=== PATIENT | female | born 1945 | race Caucasian/White ===

== ENCOUNTER 2017-02-28 11:54 | Inpatient (IN) | payer OTHER, BC ==
[2017-02-28] VITALS (17 sets, daily range): BP systolic 118–165; BP diastolic 51–103
[~2017-02-28] VITALS: Ht 157.5 cm; Wt 123.8 kg
--- NOTE | ~2017-02-28 | O ---
[facility] [place] [address] OPERATIVE REPORT Name: JOYCELYN HART Room #: 244-P ADM IN M.R.#: [id number] Admission: 02/28/17 Attend Phys: Asim Urbano MD Discharge: Date of : 41 Report #: [id number] THIS REPORT FOR: //name// CC: Asim Tomlinson MD DATE OF SERVICE: 03/06/2017 SURGEON: Kd Ghosh M.D. PREOPERATIVE DIAGNOSIS: Respiratory failure. POSTOPERATIVE DIAGNOSIS: Respiratory failure. OPERATIVE PROCEDURES: 1. Tracheostomy placement. 2. Division of thyroid isthmus. 3. Flexible fiberoptic bronchoscopy through tracheostomy site. ANESTHESIA: General. ESTIMATED BLOOD LOSS: 10 mL. INDICATIONS FOR SURGERY: The patient is a 71-year-old female who has respiratory failure, has been on ventilator for 14 days. Tracheostomy has been discussed with the family and the physicians involved and recommended for her ongoing care. DESCRIPTION OF PROCEDURE: The patient was placed on the operating table in supine position. After her PEG tube was placed, we proceeded to prep and drape her neck in the usual fashion for a tracheostomy. I injected the soft tissue of the neck with lidocaine with epinephrine. I outlined and then made a 3 cm incision through skin and subcutaneous tissue. We dissected down to the strap muscle. We dissected between the median raphe of the strap muscles and retracted these laterally exposing the thyroid. I divided the thyroid isthmus with cautery dissection. This was done to expose the trachea. I palpated the cricoid and into our tracheostomy site for about the fourth tracheal ring. I excised the anterior aspect of the fourth tracheal ring with a 15-blade knife. We slowly withdrew the endotracheal tube and inserted a #7 extra long Shiley tracheostomy tube with cuff and disposable inner cannula. This was successfully inserted. It was sutured to the skin after closure of some of the incision with 3-0 chromic. These skin and securing sutures were 3-0 nylon. I then applied tracheostomy ties. We then proceeded to examine the placement with a fiberoptic bronchoscope. [facility] [address] [place] [address] OPERATIVE REPORT Name: JOYCELYN HART Room #: 244-P [facility] IN M.R.#: [id number] Admission: 02/28/17 Attend Phys: Asim Urbano MD Discharge: Date of : 43 Report #: [id number] There was distal tracheal collapse suggesting tracheomalacia making it difficult to even see the kesha due to blood and tracheal collapse. The tracheostomy tube was clearly in the trachea. We then obtained a chest x-ray, which demonstrated that the tracheostomy tube was above the kesha. On this basis, the patient was transferred back to the intensive care unit in stable condition. Routine tracheostomy care will be provided. By: [id number] Kd Ghosh MD /danisha
--- NOTE | ~2017-02-28 | HC ---
[facility] [place] [address] CONSULTATION Name: JOYCELYN HART Room #: 238-P [facility] IN M.R.#: [id number] Admission: 02/28/17 Attend Phys: Asim Urbano MD Discharge: 03/23/17 Date of : 41 Report #: [id number] THIS REPORT FOR: //name// CC: Asim Alcala DATE OF SERVICE: 03/14/2017 DATE OF CONSULTATION: 03/14/2017 HISTORY OF PRESENT ILLNESS: I have been asked to evaluate this 71-year-old lady, who is currently on a respirator on with progressive dilatation of her small bowel over the last 7-10 days. The patient presented to [facility] with shortness of breath, was found to have bilateral pulmonary emboli, unprovoked. She has a long history of systemic lupus erythematosus. She was intubated and ultimately transferred to [facility] for tracheostomy and subsequently also had a PEG tube placed approximately 7 days ago. The PEG tube has been functional and satisfactory. The patient has been unable to be weaned at this point in time from the respirator. She was found to have progressive dilatation of the small bowel in recent days. Family denies having hearing patient pass flatus or any stools for the last 2-3 days. PAST MEDICAL HISTORY: Consistent with AFib, anemia, respiratory failure, systemic lupus erythematosus many years, chronic kidney disease, left donor nephrectomy many years ago, recent onset of unprovoked pulmonary emboli, DVT. The patient has ____ filter at this point in time, morbid obesity. ALLERGIES: EPROSARTAN, LISINOPRIL AND BENADRYL. MEDICATIONS: Currently multiple. See the medical record. PAST SURGICAL HISTORY: Only a previous . PHYSICAL EXAMINATION: GENERAL: Family at the bedside, and 2 sons. She is afebrile. She is stable. Currently on a respirator, grimacing to painful stimuli and to tracheal irritation. LUNGS: Decreased breath sounds at the bases. CARDIOVASCULAR: Regular rate and rhythm. ABDOMEN: Obese, soft, nonrigid, no guarding. RECTAL: Not performed. NEUROLOGIC: Stable. LABORATORY: Review of the patient's KUB demonstrates dilated loops of bowel. I would recommend a CT scan with oral contrast per the PEG tube tonight to further evaluate this as possible ileus, narcotically induced versus a small-bowel [facility] [address] [place] [address] CONSULTATION Name: JOYCELYN HART Room #: 238-P DIS IN M.R.#: [id number] Admission: 02/28/17 Attend Phys: Asim Urbano MD Discharge: 03/23/17 Date of : 43 Report #: [id number] obstruction secondary to adhesions. The orders have been placed. Thank you for allowing us to participate in her care and we will follow her with you. I would recommend new labs, KUB ____ as well as lactic acid in the a.m. <ELECTRONICALLY SIGNED> By: Dennis Barajas MD, FACS 03/26/17 1550 1215 1412 Dennis Barajas MD, FACS /nt
--- NOTE | ~2017-02-28 | S ---
[facility] [place] [address] SURGICAL PATH RPT PROCEDURE Name: JOYCELYN PEÑA Room #: 238-P DIS IN M.R.#: [id number] Admission: 02/28/17 Date of : 41 Discharge: 03/23/17 Report #: [id number] Path Case #: [id number] PATHOLOGY REPORT COLLECTION DATE: 03/21/2017 RECEIVED DATE: 03/24/2017 SUBMITTING PHYS: Dr. Dennis Barajas OTHER PHYS: Dr. Lucy Adam SPECIMEN(S) RECEIVED: A.Partial Gastrectomy * * * * * * * * * * * * FINAL DIAGNOSIS: Portion of stomach, "partial gastrectomy": - Portion of stomach with focal transmural defect with associated acute and chronic inflammation and granulation tissue. - Acute and chronic serositis. (MARÍA ELENA/mikaela; 03/26/2017) PATHOLOGIST: Rachel Reeves M.D. REPORT ELECTRONICALLY SIGNED BY: aRchel Reeves M.D. DATE/TIME: 03/27/2017 10:42 * * * * * * * * * * * * GROSS PATHOLOGY: The specimen is received in formalin labeled "Joycelyn Peña partial gastrectomy". Received is a segment of pale delgado mucosal covered tissue with a stapled margin of resection measuring 4.3 x 1.8 x 1.4 cm in greatest dimensions. The mucosal surface displays a circular defect measuring 1.2 x 0.9 cm displaying exposed light brown mucosa. The viktor are removed and the specimen is opened to reveal light delgado, cerebriform-appearing mucosa with normal architectural folds. The specimen is submitted representatively in cassettes A1 through A3. (CAA; 03/25/2017) CLINICAL HISTORY: Displaced feeding tube INITIAL CPT CODE(S): A; 35430 Professional services performed by [facility] at [facility] [address] [place] [address] SURGICAL PATH RPT PROCEDURE Name: JOYCELYN PEÑA Room #: 238-P [facility] IN [facility].#: [id number] Admission: 02/28/17 Date of : 41 Discharge: 03/23/17 Report #: [id number] Path Case #: [id number] Technical services performed by [facility] at [address] [place] [address], [facility] [address] [address]. [place] [address] PHONE: [phone] DIRECTOR: Jairo Solorzano M.D. * * * END OF REPORT * * *
--- NOTE | ~2017-02-28 | S ---
[facility] [address] [place] [address] SURGICAL PATH RPT PROCEDURE Name: JOYCELYN HART Room #: 244-P ADM IN M.R.#: [id number] Admission: 02/28/17 Date of : 41 Discharge: Report #: [id number] Path Case #: [id number] PATHOLOGY REPORT COLLECTION DATE: 03/09/2017 RECEIVED DATE: 03/10/2017 SUBMITTING PHYS: Dr. Arminda Neil OTHER PHYS: Dr. Bereket Ghosh Jr. Dr. Carmela Urbano SPECIMEN(S) RECEIVED: A.Peripheral smear * * * * * * * * * * * * FINAL DIAGNOSIS: Peripheral blood smear: - Severe normocytic anemia, mild leukocytosis/neutrophilia with a mild left shift and mild thrombocytopenia. (see comment) COMMENT: Overall, the peripheral blood has severe normocytic anemia, mild leukocytosis/neutrophilia with a mild left shift and mild thrombocytopenia. The etiology of the findings is unclear based entirely on slide review. It is likely related to the patient's underlying medical condition and/or therapies. Potential causes of normocytic anemia include anemia of chronic disease, treated and/or compensated vitamin and mineral deficiencies, acute blood loss, and dilutional. Potential causes of leukocytosis include infections, drug reactions, and smoking. Potential causes of thrombocytopenia include immune and non-immune platelet destruction, drug and/or toxic exposures, dilutional and primary bone marrow disorders. Correlation with clinical history and additional laboratory data is recommended. (CLW:mgr; 03/10/2017) PATHOLOGIST: Yamini Hopson M.D. REPORT ELECTRONICALLY SIGNED BY: Yamini Hopson M.D. DATE/TIME: 03/10/2017 22:39 * * * * * * * * * * * * MICROSCOPIC DESCRIPTION: CBC Data (03/09/17): WBC 11,900 /uL, RBC 2.32, hemoglobin 6.9 g/dL, hematocrit 21.2%, MCV 91.3 fL, MCH 29.7 pg, MCHC 32.5 g/dL, [place] [address] SURGICAL PATH RPT PROCEDURE Name: JOYCELYN HART Room #: 244- ADM IN [facility].#: [id number] Admission: 02/28/17 Date of : 41 Discharge: Report #: [id number] Path Case #: [id number] 17.5%. Platelet count 119,000 /uL. Manual white blood cell differential: segs 98%, lymphs 2%. Peripheral Blood Smear: Cytomorphological examination of the Iniguez's stained peripheral blood smear confirms the provided data. Red blood cells show severe normocytic anemia with mild anisocytosis. No significant poikilocytosis is identified. No schistocytes or microspherocytes are seen. A suggestion of rouleaux is noted. White blood cells are mildly increased in number. They are predominantly segmented neutrophils and are without significant dyspoiesis. Reactive changes are noted. A rare metamyelocyte is noted on scanning. No blasts or Deepika rods are seen. Rare lymphocytes are predominantly small, round, and mature appearing with condensed chromatin and scant cytoplasm. Rare monocytes are mature. Platelets are mildly decreased in number and mainly normal in morphology with rare larger platelets noted. CLINICAL HISTORY: 71 year-old woman with anemia and thrombocytopenia. Morphologic review of the peripheral blood smear is requested by the patient's physician. INITIAL CPT CODE(S): A; NC Professional services performed by [facility] at [facility] [address], [place] [address] Technical services performed by [facility] at [address] [place] [address], [address] [address]. [facility] [address] [place] [address] PHONE: [phone] DIRECTOR: Jairo Solorzano M.D. * * * END OF REPORT * * *
--- NOTE | ~2017-02-28 | O ---
[facility] [place] [address] OPERATIVE REPORT Name: JOYCELYN HART Room #: 238-P [facility] IN M.R.#: [id number] Admission: 02/28/17 Attend Phys: Asim Urbano MD Discharge: 03/23/17 Date of : 41 Report #: [id number] THIS REPORT FOR: //name// CC: Asim Alcala DATE OF SERVICE: 03/21/2017 PREOPERATIVE DIAGNOSES: Gastric perforation with displaced PEG tube, pneumoperitoneum. POSTOPERATIVE DIAGNOSIS: Gastric perforation with displaced PEG tube, pneumoperitoneum. OPERATIVE PROCEDURE: Exploratory laparotomy, partial gastrectomy, closure of gastrotomy site, insertion of narayanan gastrojejunostomy tube. Irrigation of peritoneal cavity. SURGEON: Dennis Barajas MD SHEEP BONER: Gaudencio Griffiths MD SECOND ASSISTANTS: 1. Julieth Beckham MS4. 2. Joseph Canales MS3. INDICATIONS: A 71-year-old lady with multiple and severe medical issues on the respirator having had a previous PEG tube placed, now has demonstration by insertion of contrast material into the PEG that the PEG tube has displaced from the stomach wall. The patient has pneumoperitoneum, free air by KUB and CT scanning. This will require exploratory laparotomy for repair. OPERATIVE PROCEDURE: The patient was on the respirator and sedated. Discussion was held with the who is durable power of deputy county attorney and the immediate family regarding the need for exploratory laparotomy and repair of the gastrotomy site and removal of the old PEG tube with placement of a new narayanan gastrojejunostomy tube. They are in agreement to proceed and desire to proceed. OPERATIVE PROCEDURE: The patient was transported directly from the intensive care unit to the operating room. She had satisfactory induction of general anesthesia through the tracheostomy tube. Sterile paint with DuraPrep was performed from the inframammary crease to the symphysis pubis. After prep was completed, draping was completed with utilization of an Ioban drape to exclude the previous PEG tube from the operative field. Draping was completed. An appropriate timeout was then performed. An upper midline incision was performed. Dissection was carried down through the subcutaneous tissue to the [facility] [address] [place] [address] OPERATIVE REPORT Name: JOYCELYN HART Room #: 238-P [facility] IN [facility].#: [id number] Admission: 02/28/17 Attend Phys: Asim Urbano MD Discharge: 03/23/17 Date of : 43 Report #: [id number] fascia. A 12 cm midline incision of the fascia was performed. Examination of the left upper quadrant abdominal wall demonstrated the flange of the PEG tube against the abdominal wall and out of the stomach. This was transected and the entire PEG tube was removed from the field. The gastrotomy site was found along the greater curvature of the stomach. This was grasped with [place] clamps. A 75 mm green load of the IVIS stapling device was utilized to perform the partial gastrectomy with closure of the gastrotomy perforation site. The staple line was then oversewn in a Lembert style running suture of 2-0 PDS. Attention was then turned to more distal portion of the stomach where 2 pursestring sutures of 2-0 PDS were placed. A narayanan gastrojejunostomy tube was then brought through the abdominal wall through the same previous PEG tube site. A small gastrotomy was performed utilizing the cautery. After the gastrotomy was performed, the narayanan gastrojejunostomy tube was inserted. It was threaded through the pylorus and to the duodenal sweep. Once the balloon was satisfactory inside the stomach, the balloon was inflated with 20 mL of saline. The 2 pursestring sutures were then ligated in place. The stomach was then brought up against the anterior abdominal wall and 3 sutures to approximate the surface of the stomach to the abdominal wall was performed. After the sutures were removed, hemostasis was complete, irrigation with saline was performed of the upper abdomen, approximately 2 liters was used. Inflow of saline through the narayanan gastrojejunostomy tube through the gastrotomy port as well as the feeding port at the tip and the duodenum was performed. These worked satisfactorily. Hemostasis was complete. The fascia was then approximated with running looped #1 PDS suture. One suture was run from the superior aspect of the incision, one suture was run from the inferior aspect of the incision. These sutures were tied individually and then the tails tied together in the mid portion of the wound. Irrigation of subcutaneous tissues was performed. Skin margins were then stapled. The narayanan gastrojejunostomy tube was sutured in place with the flange to the skin. It functioned properly at the conclusion of the procedure with the inflow and outflow of saline. Skin margins were stapled. A Prevena dressing was placed. The estimated blood loss for the entire procedure was approximately 50 mL. All sponge and needle counts were correct. The patient returned directly to the Intensive Care Unit in stable and satisfactory condition. <ELECTRONICALLY SIGNED> By: Dennis Barajas MD, FACS 03/24/17 1305 1141 1248 Dennis Barajas MD, FACS /nt
[~2017-02-28 11:54] MED LIST: ACETAMINOPHN-T1 EACH PO; ADVAIR 100-501 EACH INH; ALLOPURINOL 10100 M1 PO; ALLOPURINOL 30300 M2 PO; CEFTRIAXONE2 GM IJ; CITRUCEL500 MG PO; ENTOCORT EC 3 MG3 M1 PO; FISH OIL 1,001000 M1 PO; FLONASE 0.05%50 MCG NASAL; HYDROCHLOROTHIA25 M1 PO; HYDROXYCHLOROQ200 M1 PO; LIDODERM 5%1 PATCH TOP; LIPITOR 20 MG T20 M1 PO; LISINOPRIL40 MG PO; MULTIGEN CAPLET1 CAP PO; NORCO 5-325 TA1 EACH PO; NORFLEX100 MG PO; PAROXETINE HCL20 MG PO; PREDNISONE 1 MG1 M1 PO; SIMVASTATIN20 MG PO; SULFASALAZINE500 M5 PO; TEVETEN PO; THERA-M CAPLET1 EACH PO; TYLENOL325 MG PO
[2017-02-28] MEDS ORDERED: LEVOTHYROXIN0.025 MG PO (13:53)
[2017-02-28] MEDS ORDERED: CARDIZEM CD120 MG PO (13:54)
[2017-02-28] MEDS ORDERED: OMEPRAZOLE40 MG PO (13:54)
[2017-02-28] MEDS ORDERED: LASIX 40 MG TAB40 M2 PO (13:55)
[2017-02-28] MEDS ORDERED: MULTIGEN FOLIC1 EACH PO (13:55)
[2017-02-28] MEDS ORDERED: POTASSIUM20 PO (13:56)
[2017-02-28] MEDS ORDERED: PRADAXA75 MG PO (13:56)
[2017-02-28] MEDS ORDERED: PREDNISONE50 MG PO (13:57)
[2017-02-28] MEDS ORDERED: ATORVASTATIN CA20 MG PO (13:58)
[2017-02-28] MEDS ORDERED: VITAMIN D32000 UNIT PO (13:58)
[2017-02-28] MEDS ORDERED: CITRUCEL500 MG PO (13:59)
[2017-02-28 15:34] LABS: HEMATOCRIT 24.4 % (37.0-47.0); HEMOGLOBIN 8.1 gm/dL (12.0-15.0); MCH 30.6 pg (26.0-34.0); MCHC 33.2 g/dL (28.0-37.0); RBC 2.65 mil/uL (4.20-5.00); RDW 16.7 % (10.5-14.5); WBC 9.7 thou/uL (4.0-11.0)
[2017-02-28 16:40] LABS: CALCIUM 8.4 mg/dL (8.5-10.1); CREATININE 3.2 mg/dL (0.6-1.0); POTASSIUM 3.4 mmol/L (3.5-5.1)
[2017-02-28 16:49] LABS: ALBUMIN 2.7 g/dL (3.4-5.0); MAGNESIUM 2.2 mg/dL (1.8-2.4); PHOSPHORUS 6.5 mg/dL (2.5-4.9); TOTAL BILIRUBIN 0.4 mg/dL (<0.1-1.0); TOTAL PROTEIN 5.5 g/dL (6.4-8.2); TROPONIN-I 0.11 ng/mL (<0.04-0.07)
[2017-02-28 17:24] LABS: ABG SAMPLE TYPE ARTERIAL; BE(vivo) -6.5 mmol/L (-2 to +3); HCO3 18.1 mmol/L (22.0-26.0); LACTATE 0.79 mmol/L (0.5-2.0); O2(CT) 12.6 mL/dL (15.0-23.0); O2Hb 98.3 % (92.0-98.0); PCO2 32.1 mmHg (35.0-45.0); PO2 269.9 mmHg (80.0-100.0); STICK SITE R.RADIAL; TIDAL VOLUME 650 ml; pH 7.368 (7.360-7.450); sO2 99.6 % (92.0-98.0)
[2017-02-28 21:42] LABS: PROT/CREAT RATIO 2.4; URINE CREATININE-RANDOM* 51.8 mg/dL; URINE PROTEIN-RANDOM* 125.3 mg/dL (<11.9)
[2017-03-01] VITALS (24 sets, daily range): BP systolic 107–164; BP diastolic 38–91
[2017-03-01 05:59] LABS: HEMATOCRIT 23.2 % (37.0-47.0); HEMOGLOBIN 7.7 gm/dL (12.0-15.0); MCH 30.6 pg (26.0-34.0); MCHC 33.4 g/dL (28.0-37.0); MCV 91.6 fL (80.0-100.0); RBC 2.53 mil/uL (4.20-5.00); RDW 16.8 % (10.5-14.5); WBC 9.3 thou/uL (4.0-11.0)
[2017-03-01 06:04] LABS: CALCIUM 8.3 mg/dL (8.5-10.1); CREATININE 2.9 mg/dL (0.6-1.0); MAGNESIUM 2.1 mg/dL (1.8-2.4); POTASSIUM 3.6 mmol/L (3.5-5.1)
[2017-03-01 15:36] LABS: ABG SAMPLE TYPE ARTERIAL; BE(vivo) -9.1 mmol/L (-2 to +3); LACTATE 0.99 mmol/L (0.5-2.0); O2(CT) 13.2 mL/dL (15.0-23.0); O2Hb 96.3 % (92.0-98.0); PCO2 44.6 mmHg (35.0-45.0); PO2 110.1 mmHg (80.0-100.0); pH 7.224 (7.360-7.450); sO2 97.1 % (92.0-98.0); tCO2 19.4 mmol/L (24.0-30.0)
[2017-03-01 15:37] LABS: Pressure Support 5 cm H20; STICK SITE L.RADIAL
[2017-03-01 15:39] LABS: ABG COMMENT CPAP TRIAL
[2017-03-01 16:33] LABS: % SATURATION 40 % (20-39); IRON 79 ug/dL (50-170); TIBC 198 ug/dL (250-450); UIBC 119 ug/dL
[2017-03-01 17:57] LABS: FOLIC ACID 23.9 ng/mL (8.6-58.9)
[2017-03-02] VITALS (20 sets, daily range): BP systolic 108–159; BP diastolic 50–74
[2017-03-02 05:25] LABS: HEMATOCRIT 22.4 % (37.0-47.0); HEMOGLOBIN 7.4 gm/dL (12.0-15.0); MCH 30.3 pg (26.0-34.0); MCV 91.8 fL (80.0-100.0); RBC 2.44 mil/uL (4.20-5.00); RDW 17.1 % (10.5-14.5); WBC 10.8 thou/uL (4.0-11.0)
[2017-03-02 05:33] LABS: ALBUMIN 2.6 g/dL (3.4-5.0); CALCIUM 8.6 mg/dL (8.5-10.1); CREATININE 2.9 mg/dL (0.6-1.0); PHOSPHORUS 7.5 mg/dL (2.5-4.9)
[2017-03-02 12:26] LABS: ABG SAMPLE TYPE ARTERIAL; BE(vivo) -8.5 mmol/L (-2 to +3); HCO3 17.2 mmol/L (22.0-26.0); LACTATE 1.01 mmol/L (0.5-2.0); O2(CT) 12.5 mL/dL (15.0-23.0); PO2 117.6 mmHg (80.0-100.0); STICK SITE L.RADIAL; TIDAL VOLUME 600 ml; pH 7.296 (7.360-7.450); sO2 97.9 % (92.0-98.0); tCO2 18.3 mmol/L (24.0-30.0)
[2017-03-03] VITALS (17 sets, daily range): BP systolic 136–173; BP diastolic 61–93
[2017-03-03 05:25] LABS: HEMATOCRIT 21.3 % (37.0-47.0); HEMOGLOBIN 7.1 gm/dL (12.0-15.0); MCH 30.8 pg (26.0-34.0); MCHC 33.5 g/dL (28.0-37.0); MCV 91.9 fL (80.0-100.0); RBC 2.31 mil/uL (4.20-5.00); WBC 9.8 thou/uL (4.0-11.0)
[2017-03-03 05:40] LABS: ABG SAMPLE TYPE ARTERIAL; STICK SITE R.RADIAL
[2017-03-03 05:41] LABS: BE(vivo) -6.5 mmol/L (-2 to +3); HCO3 18.8 mmol/L (22.0-26.0); LACTATE 1.04 mmol/L (0.5-2.0); PCO2 36.5 mmHg (35.0-45.0); PO2 114.3 mmHg (80.0-100.0); tCO2 19.9 mmol/L (24.0-30.0)
[2017-03-03 05:42] LABS: O2Hb 96.5 % (92.0-98.0); sO2 97.9 % (92.0-98.0)
[2017-03-03 05:43] LABS: ABG COMMENT A/C 16; FIO2 30 %; TIDAL VOLUME 600 ml
[2017-03-03 05:46] LABS: CALCIUM 8.7 mg/dL (8.5-10.1); CREATININE 2.9 mg/dL (0.6-1.0); MAGNESIUM 2.2 mg/dL (1.8-2.4); POTASSIUM 3.7 mmol/L (3.5-5.1)
[2017-03-03 12:59] LABS: ABG SAMPLE TYPE ARTERIAL; BE(vivo) -8.6 mmol/L (-2 to +3); HCO3 18.1 mmol/L (22.0-26.0); LACTATE 1.02 mmol/L (0.5-2.0); O2Hb 95.5 % (92.0-98.0); PCO2 42.4 mmHg (35.0-45.0); PO2 100.5 mmHg (80.0-100.0); sO2 96.6 % (92.0-98.0); tCO2 19.4 mmol/L (24.0-30.0)
[2017-03-03 13:02] LABS: Pressure Support 7 cm H20; STICK SITE R.RADIAL; VDS CPAP TRIAL X 1 HOUR cc; pH 7.248 (7.360-7.450)
[2017-03-04] VITALS (29 sets, daily range): BP systolic 126–164; BP diastolic 61–96
[2017-03-04 05:47] LABS: HEMOGLOBIN 6.7 gm/dL (12.0-15.0)
[2017-03-04 05:49] LABS: HEMATOCRIT 20.1 % (37.0-47.0); MCH 30.8 pg (26.0-34.0); MCHC 33.5 g/dL (28.0-37.0); MCV 91.8 fL (80.0-100.0); RBC 2.19 mil/uL (4.20-5.00); RDW 17.1 % (10.5-14.5); WBC 11.6 thou/uL (4.0-11.0)
[2017-03-04 06:11] LABS: ALBUMIN 2.7 g/dL (3.4-5.0); CALCIUM 8.4 mg/dL (8.5-10.1); PHOSPHORUS 7.3 mg/dL (2.5-4.9); POTASSIUM 3.3 mmol/L (3.5-5.1)
[2017-03-04 10:57] LABS: MCH 30.1 pg (26.0-34.0); MCHC 32.4 g/dL (28.0-37.0); MCV 92.8 fL (80.0-100.0); PLATELET COUNT 156 thou/uL (150-400); RBC 2.07 mil/uL (4.20-5.00); WBC 11.2 thou/uL (4.0-11.0)
[2017-03-04 10:58] LABS: MANUAL DIFF YES
[2017-03-04 11:00] LABS: HEMOGLOBIN 6.2 gm/dL (12.0-15.0)
[2017-03-04 11:01] LABS: HEMATOCRIT 19.2 % (37.0-47.0)
[2017-03-04 11:11] LABS: PROTIME 10.7 Seconds (9.3-11.4)
[2017-03-04 12:37] LABS: ABSOLUTE NEUTROPHILS 10.8 thou/uL (1.4-8.2); METAMYELOCYTES 1 %; TOTAL CELL COUNT 100
[2017-03-04 12:38] LABS: ANISOCYTOSIS SLIGHT; HYPOCHROMASIA SLIGHT; OVALOCYTES OCCASIONAL; POIKILOCYTOSIS SLIGHT
[2017-03-04 13:21] LABS: ABG SAMPLE TYPE ARTERIAL; BE(vivo) -3.1 mmol/L (-2 to +3); HCO3 21.8 mmol/L (22.0-26.0); LACTATE 1.15 mmol/L (0.5-2.0); O2(CT) 9.9 mL/dL (15.0-23.0); O2Hb 96.1 % (92.0-98.0); PO2 105.4 mmHg (80.0-100.0); STICK SITE R.RADIAL; pH 7.376 (7.360-7.450); sO2 97.7 % (92.0-98.0); tCO2 22.9 mmol/L (24.0-30.0)
[2017-03-04 13:22] LABS: ABG COMMENT A/C; TIDAL VOLUME 600 ml
[2017-03-05] VITALS (24 sets, daily range): BP systolic 125–159; BP diastolic 57–87
[2017-03-05 00:58] LABS: HEMATOCRIT 26.8 % (37.0-47.0)
[2017-03-05 01:01] LABS: HEMOGLOBIN 8.9 gm/dL (12.0-15.0)
[2017-03-05 04:53] LABS: ABG SAMPLE TYPE ARTERIAL; BE(vivo) -4.5 mmol/L (-2 to +3); HCO3 20.1 mmol/L (22.0-26.0); LACTATE 0.89 mmol/L (0.5-2.0); O2(CT) 12.8 mL/dL (15.0-23.0); O2Hb 96.3 % (92.0-98.0); STICK SITE R.RADIAL; TIDAL VOLUME 600 ml; pH 7.377 (7.360-7.450); tCO2 21.2 mmol/L (24.0-30.0)
[2017-03-05 04:54] LABS: ABG COMMENT A/C MODE
[2017-03-05 05:35] LABS: HEMATOCRIT 25.3 % (37.0-47.0); HEMOGLOBIN 8.4 gm/dL (12.0-15.0); MCH 29.5 pg (26.0-34.0); MCHC 33.2 g/dL (28.0-37.0); MCV 88.7 fL (80.0-100.0); RBC 2.85 mil/uL (4.20-5.00); RDW 17.1 % (10.5-14.5); WBC 14.6 thou/uL (4.0-11.0)
[2017-03-05 05:42] LABS: ALBUMIN 2.6 g/dL (3.4-5.0); CALCIUM 8.6 mg/dL (8.5-10.1); CREATININE 2.7 mg/dL (0.6-1.0); PHOSPHORUS 6.5 mg/dL (2.5-4.9); POTASSIUM 3.4 mmol/L (3.5-5.1)
[2017-03-05 13:27] LABS: ABG SAMPLE TYPE ARTERIAL; BE(vivo) -5.5 mmol/L (-2 to +3); HCO3 19.9 mmol/L (22.0-26.0); O2(CT) 12.8 mL/dL (15.0-23.0); O2Hb 91.5 % (92.0-98.0); PCO2 38.7 mmHg (35.0-45.0); PO2 71.4 mmHg (80.0-100.0); sO2 93.4 % (92.0-98.0); tCO2 21.1 mmol/L (24.0-30.0)
[2017-03-05 13:28] LABS: STICK SITE R.RADIAL
[2017-03-05 13:29] LABS: ABG COMMENT CPAP TRIAL X 1.5 HR; Pressure Support 6 cm H20; TIDAL VOLUME 580 ml
[2017-03-06] VITALS (22 sets, daily range): BP systolic 138–189; BP diastolic 62–96
[2017-03-06 05:20] LABS: ABG SAMPLE TYPE ARTERIAL; HCO3 22.1 mmol/L (22.0-26.0); LACTATE 1.21 mmol/L (0.5-2.0); O2(CT) 14.6 mL/dL (15.0-23.0); O2Hb 96.5 % (92.0-98.0); PCO2 35.1 mmHg (35.0-45.0); PO2 108.8 mmHg (80.0-100.0); pH 7.416 (7.360-7.450); sO2 98.1 % (92.0-98.0); tCO2 23.1 mmol/L (24.0-30.0)
[2017-03-06 05:21] LABS: ABG COMMENT AC16 600 +7 30%; STICK SITE RRA; TIDAL VOLUME 600 ml
[2017-03-06 05:42] LABS: HEMATOCRIT 23.9 % (37.0-47.0); MCH 29.7 pg (26.0-34.0); MCHC 33.4 g/dL (28.0-37.0); MCV 88.9 fL (80.0-100.0); RBC 2.69 mil/uL (4.20-5.00); RDW 17.2 % (10.5-14.5); WBC 12.6 thou/uL (4.0-11.0)
[2017-03-06 05:52] LABS: ALBUMIN 2.5 g/dL (3.4-5.0); CALCIUM 8.5 mg/dL (8.5-10.1); CREATININE 2.7 mg/dL (0.6-1.0); PHOSPHORUS 5.2 mg/dL (2.5-4.9); POTASSIUM 3.7 mmol/L (3.5-5.1)
[2017-03-07] VITALS (24 sets, daily range): BP systolic 131–168; BP diastolic 62–96
[2017-03-07 05:18] LABS: ABG SAMPLE TYPE ARTERIAL; BE(vivo) -2.3 mmol/L (-2 to +3); HCO3 22.2 mmol/L (22.0-26.0); LACTATE 1.36 mmol/L (0.5-2.0); O2(CT) 12.9 mL/dL (15.0-23.0); O2Hb 96.3 % (92.0-98.0); PCO2 36.6 mmHg (35.0-45.0); PO2 110.1 mmHg (80.0-100.0); sO2 98.1 % (92.0-98.0); tCO2 23.3 mmol/L (24.0-30.0)
[2017-03-07 05:19] LABS: STICK SITE R.RADIAL; TIDAL VOLUME 600 ml
[2017-03-07 05:48] LABS: HEMATOCRIT 26.5 % (37.0-47.0); HEMOGLOBIN 8.6 gm/dL (12.0-15.0); MCH 29.2 pg (26.0-34.0); MCHC 32.2 g/dL (28.0-37.0); MCV 90.6 fL (80.0-100.0); PLATELET COUNT 142 thou/uL (150-400); RBC 2.93 mil/uL (4.20-5.00); RDW 17.4 % (10.5-14.5); WBC 17.6 thou/uL (4.0-11.0)
[2017-03-07 05:51] LABS: MANUAL DIFF YES
[2017-03-07 06:01] LABS: ALBUMIN 2.8 g/dL (3.4-5.0); CALCIUM 8.7 mg/dL (8.5-10.1); CREATININE 2.6 mg/dL (0.6-1.0); POTASSIUM 3.6 mmol/L (3.5-5.1)
[2017-03-07 07:44] LABS: ABSOLUTE NEUTROPHILS 16.7 thou/uL (1.4-8.2); ANISOCYTOSIS 1+; TOTAL CELL COUNT 100
[2017-03-07 08:55] LABS: ABG SAMPLE TYPE ARTERIAL; BE(vivo) -6.1 mmol/L (-2 to +3); HCO3 19.1 mmol/L (22.0-26.0); LACTATE 1.53 mmol/L (0.5-2.0); O2(CT) 13.3 mL/dL (15.0-23.0); O2Hb 95.9 % (92.0-98.0); PCO2 36.4 mmHg (35.0-45.0); pH 7.337 (7.360-7.450); sO2 97.7 % (92.0-98.0); tCO2 20.2 mmol/L (24.0-30.0)
[2017-03-07 08:56] LABS: ABG COMMENT CPAP TRIAL X 30 MIN; Pressure Support 5 cm H20; STICK SITE R.RADIAL
[2017-03-08] VITALS (23 sets, daily range): BP systolic 103–163; BP diastolic 55–121
[2017-03-08 05:25] LABS: ABG SAMPLE TYPE ARTERIAL; FIO2 30 %; HCO3 22.9 mmol/L (22.0-26.0); LACTATE 1.38 mmol/L (0.5-2.0); O2Hb 94.2 % (92.0-98.0); PCO2 34.6 mmHg (35.0-45.0); PO2 81.1 mmHg (80.0-100.0); STICK SITE R.RADIAL; TIDAL VOLUME 600 ml; pH 7.439 (7.360-7.450); sO2 96.4 % (92.0-98.0)
[2017-03-08 05:36] LABS: HEMATOCRIT 23.5 % (37.0-47.0); HEMOGLOBIN 7.7 gm/dL (12.0-15.0); MCH 29.6 pg (26.0-34.0); MCHC 32.9 g/dL (28.0-37.0); MCV 90.2 fL (80.0-100.0); RBC 2.6 mil/uL (4.20-5.00); RDW 17.5 % (10.5-14.5); WBC 13.7 thou/uL (4.0-11.0)
[2017-03-08 05:42] LABS: PROTIME 10.7 Seconds (9.3-11.4)
[2017-03-08 05:48] LABS: ALBUMIN 2.7 g/dL (3.4-5.0); CALCIUM 8.9 mg/dL (8.5-10.1); CREATININE 2.5 mg/dL (0.6-1.0); PHOSPHORUS 5.2 mg/dL (2.5-4.9); POTASSIUM 3.7 mmol/L (3.5-5.1)
[2017-03-09] VITALS (21 sets, daily range): BP systolic 117–178; BP diastolic 46–78
[2017-03-09 04:42] LABS: HEMOGLOBIN 6.9 gm/dL (12.0-15.0); MCH 29.7 pg (26.0-34.0); PLATELET COUNT 119 thou/uL (150-400); RBC 2.32 mil/uL (4.20-5.00); WBC 11.9 thou/uL (4.0-11.0)
[2017-03-09 04:43] LABS: HEMATOCRIT 21.2 % (37.0-47.0); MCHC 32.5 g/dL (28.0-37.0); MCV 91.3 fL (80.0-100.0); RDW 17.5 % (10.5-14.5)
[2017-03-09 04:46] LABS: MANUAL DIFF YES
[2017-03-09 04:58] LABS: ALBUMIN 2.5 g/dL (3.4-5.0); CALCIUM 8.9 mg/dL (8.5-10.1); CREATININE 2.7 mg/dL (0.6-1.0); PHOSPHORUS 5.3 mg/dL (2.5-4.9); POTASSIUM 3.6 mmol/L (3.5-5.1); TOTAL BILIRUBIN 0.3 mg/dL (<0.1-1.0); TOTAL PROTEIN 5.4 g/dL (6.4-8.2)
[2017-03-09 05:44] LABS: ABSOLUTE NEUTROPHILS 11.7 thou/uL (1.4-8.2); TOTAL CELL COUNT 100
[2017-03-09 05:45] LABS: ANISOCYTOSIS 1+
[2017-03-09 10:35] LABS: URINE BILIRUBIN NEGATIVE (Negative); URINE BLOOD 3+ (Negative); URINE COLOR YELLOW; URINE GLUCOSE-RANDOM* NEGATIVE (Negative); URINE KETONES NEGATIVE (Negative); URINE LEUKOCYTES-REFLEX TRACE (Negative); URINE PROTEIN (DIPSTICK) 2+ (Negative); URINE SPECIFIC GRAVITY 1.015 (1.003-1.035); URINE UROBILINOGEN 0.2 E.U./dl (0.2-1.0)
[2017-03-09 10:57] LABS: APTT 23.4 Seconds (24.5-32.8); INR 1.1; PROTIME 10.9 Seconds (9.3-11.4)
[2017-03-09 11:05] LABS: SQUAMOUS 0-3 Few /LPF (0-3); URINE WBC-REFLEX 0-5 Rare /HPF (0-5)
[2017-03-09 11:06] LABS: CRYSTALS None Seen /LPF (None Seen)
[2017-03-09 11:08] LABS: FINE GRANULAR CASTS 0-3 Few /LPF (None Seen); WAXY CAST 0-3 Few /LPF (None Seen)
[2017-03-09 12:19] LABS: ABSOLUTE RETIC COUNT 0.068 10^6/uL; OBSERVED RETIC COUNT 3.2 % (0.6-2.6)
[2017-03-09 12:28] LABS: % SATURATION 41 % (20-39); IRON 64 ug/dL (50-170); TIBC 156 ug/dL (250-450); UIBC 92 ug/dL
[2017-03-10] VITALS (13 sets, daily range): BP systolic 50–144; BP diastolic 19–84
[2017-03-10 03:06] LABS: HEMATOCRIT 22.5 % (37.0-47.0); HEMOGLOBIN 7.6 gm/dL (12.0-15.0); MCH 29.7 pg (26.0-34.0); MCHC 33.7 g/dL (28.0-37.0); MCV 88.1 fL (80.0-100.0); PLATELET COUNT 122 thou/uL (150-400); RBC 2.56 mil/uL (4.20-5.00); RDW 18.3 % (10.5-14.5); WBC 10.7 thou/uL (4.0-11.0)
[2017-03-10 03:32] LABS: MANUAL DIFF YES
[2017-03-10 03:37] LABS: ALBUMIN 2.5 g/dL (3.4-5.0); CALCIUM 8.6 mg/dL (8.5-10.1); CREATININE 2.6 mg/dL (0.6-1.0); POTASSIUM 3.3 mmol/L (3.5-5.1)
[2017-03-10 08:51] LABS: ANISOCYTOSIS 1+; PLATELET ESTIMATE NORMAL; TOTAL CELL COUNT 100
[2017-03-10 16:07] LABS: HEPATITIS C VIRUS AB <0.1 (0.0-0.9)
[2017-03-11] VITALS (19 sets, daily range): BP systolic 124–166; BP diastolic 61–105
[2017-03-11 04:31] LABS: HEMATOCRIT 22.7 % (37.0-47.0); HEMOGLOBIN 7.6 gm/dL (12.0-15.0); MCH 29.9 pg (26.0-34.0); MCHC 33.6 g/dL (28.0-37.0); MCV 88.9 fL (80.0-100.0); PLATELET COUNT 132 thou/uL (150-400); RBC 2.55 mil/uL (4.20-5.00); RDW 18.8 % (10.5-14.5); WBC 9.5 thou/uL (4.0-11.0)
[2017-03-11 04:40] LABS: MANUAL DIFF YES
[2017-03-11 04:48] LABS: ALBUMIN 2.5 g/dL (3.4-5.0); CALCIUM 8.6 mg/dL (8.5-10.1); CREATININE 2.4 mg/dL (0.6-1.0); PHOSPHORUS 4.6 mg/dL (2.5-4.9); POTASSIUM 3.7 mmol/L (3.5-5.1)
[2017-03-11 08:07] LABS: ABSOLUTE NEUTROPHILS 8.9 thou/uL (1.4-8.2); METAMYELOCYTES 2 %; NUCLEATED RBCS 1 /100WBC; TOTAL CELL COUNT 100
[2017-03-11 08:08] LABS: ANISOCYTOSIS 1+
[2017-03-11 16:50] LABS: ABG SAMPLE TYPE ARTERIAL; BE(vivo) -2.6 mmol/L (-2 to +3); HCO3 22.3 mmol/L (22.0-26.0); LACTATE 1.18 mmol/L (0.5-2.0); O2(CT) 10.5 mL/dL (15.0-23.0); O2Hb 87.1 % (92.0-98.0); PO2 55.2 mmHg (80.0-100.0); STICK SITE R.RADIAL; pH 7.376 (7.360-7.450); sO2 88.2 % (92.0-98.0); tCO2 23.5 mmol/L (24.0-30.0)
[2017-03-11 16:51] LABS: Pressure Support 6 cm H20
[2017-03-12] VITALS (7 sets, daily range): BP systolic 108–159; BP diastolic 53–104
[2017-03-12 05:36] LABS: HEMATOCRIT 21.5 % (37.0-47.0); HEMOGLOBIN 7.3 gm/dL (12.0-15.0); MCHC 33.9 g/dL (28.0-37.0); MCV 88.6 fL (80.0-100.0); RBC 2.43 mil/uL (4.20-5.00); RDW 18.1 % (10.5-14.5); WBC 10.4 thou/uL (4.0-11.0)
[2017-03-12 05:58] LABS: ALBUMIN 2.5 g/dL (3.4-5.0); CALCIUM 8.7 mg/dL (8.5-10.1); CREATININE 2.3 mg/dL (0.6-1.0); PHOSPHORUS 4.3 mg/dL (2.5-4.9); POTASSIUM 3.5 mmol/L (3.5-5.1)
[2017-03-12 11:24] LABS: ABG SAMPLE TYPE ARTERIAL; BE(vivo) -4.1 mmol/L (-2 to +3); HCO3 20.6 mmol/L (22.0-26.0); O2(CT) 11.1 mL/dL (15.0-23.0); O2Hb 91.8 % (92.0-98.0); PCO2 35.6 mmHg (35.0-45.0); PO2 67.8 mmHg (80.0-100.0); sO2 93.4 % (92.0-98.0); tCO2 21.7 mmol/L (24.0-30.0)
[2017-03-12 11:25] LABS: Pressure Support 6 cm H20; STICK SITE R.RADIAL
[2017-03-12 16:09] LABS: A/G RATIO 1.4 (0.7-1.7); ALBUMIN 2.8 g/dL (2.9-4.4); ALPHA 1 0.3 g/dL (0.0-0.4); ALPHA 2 0.9 g/dL (0.4-1.0); BETA 0.6 g/dL (0.7-1.3); GAMMA 0.2 g/dL (0.4-1.8); M-SPIKE Not Observed g/dL (Not Observed)
[2017-03-13 04:29] VITALS: BP 159/88
[2017-03-13 05:57] LABS: HEMOGLOBIN 7.4 gm/dL (12.0-15.0); MCH 28.9 pg (26.0-34.0); MCHC 32.3 g/dL (28.0-37.0); MCV 89.5 fL (80.0-100.0); PLATELET COUNT 147 thou/uL (150-400); RBC 2.57 mil/uL (4.20-5.00); RDW 18.2 % (10.5-14.5); WBC 14.2 thou/uL (4.0-11.0)
[2017-03-13 06:09] LABS: ALBUMIN 2.4 g/dL (3.4-5.0); CALCIUM 8.7 mg/dL (8.5-10.1); CREATININE 2.2 mg/dL (0.6-1.0); PHOSPHORUS 3.9 mg/dL (2.5-4.9); POTASSIUM 3.4 mmol/L (3.5-5.1)
[2017-03-13 06:29] LABS: MANUAL DIFF YES
[2017-03-13 08:18] LABS: METAMYELOCYTES 2 %; MYELOCYTES 1 %; TOTAL CELL COUNT 100
[2017-03-13 08:19] LABS: ABSOLUTE NEUTROPHILS 13.5 thou/uL (1.4-8.2)
[2017-03-13 08:24] LABS: ANISOCYTOSIS 1+; HYPOCHROMASIA 1+
[2017-03-13 09:02] VITALS: BP 141/75
[2017-03-13 12:16] VITALS: BP 164/80
[2017-03-13 16:45] VITALS: BP 153/90
[2017-03-13 20:06] VITALS: BP 144/87
[2017-03-14 03:48] VITALS: BP 166/80
[2017-03-14 05:30] VITALS: BP 122/68
[2017-03-14 06:03] LABS: HEMATOCRIT 22.2 % (37.0-47.0); HEMOGLOBIN 7.2 gm/dL (12.0-15.0); MCH 29.1 pg (26.0-34.0); MCHC 32.5 g/dL (28.0-37.0); MCV 89.5 fL (80.0-100.0); RBC 2.48 mil/uL (4.20-5.00); RDW 18.3 % (10.5-14.5); WBC 16.5 thou/uL (4.0-11.0)
[2017-03-14 06:28] LABS: ALBUMIN 2.3 g/dL (3.4-5.0); CALCIUM 8.4 mg/dL (8.5-10.1); CREATININE 2.2 mg/dL (0.6-1.0); PHOSPHORUS 3.5 mg/dL (2.5-4.9); POTASSIUM 3.7 mmol/L (3.5-5.1); TOTAL BILIRUBIN 0.3 mg/dL (<0.1-1.0); TOTAL PROTEIN 5.4 g/dL (6.4-8.2)
[2017-03-14 07:45] VITALS: BP 134/82
[2017-03-14] MEDS ORDERED: CEFTRIAXONE2 GM IV (11:24)
[2017-03-14] MEDS ORDERED: ONDANSETRON HCL4 M1 IV PUSH (11:25)
[2017-03-14] MEDS ORDERED: HYDROCODON-ACE1 EAC8 PO (11:31)
[2017-03-14 11:34] LABS: URINE BILIRUBIN NEGATIVE (Negative); URINE BLOOD 3+ (Negative); URINE COLOR YELLOW; URINE GLUCOSE-RANDOM* NEGATIVE (Negative); URINE KETONES NEGATIVE (Negative); URINE LEUKOCYTES-REFLEX NEGATIVE (Negative); URINE PROTEIN (DIPSTICK) 2+ (Negative); URINE UROBILINOGEN 0.2 E.U./dl (0.2-1.0)
[2017-03-14 12:00] VITALS: BP 144/72
[2017-03-14 12:19] LABS: URINE RBC >20 Many /HPF (0-2)
[2017-03-14 12:20] LABS: CRYSTALS None Seen /LPF (None Seen); FINE GRANULAR CASTS 4-10 Moderate /LPF (None Seen); SQUAMOUS 0-3 Few /LPF (0-3)
[2017-03-14 12:21] LABS: URINE WBC-REFLEX 0-5 Rare /HPF (0-5)
[2017-03-14 16:00] VITALS: BP 146/88
[2017-03-14 16:10] LABS: HEMATOCRIT 22.2 % (37.0-47.0); HEMOGLOBIN 7.2 gm/dL (12.0-15.0); MCH 29.3 pg (26.0-34.0); MCHC 32.5 g/dL (28.0-37.0); MCV 90.1 fL (80.0-100.0); PLATELET COUNT 140 thou/uL (150-400); RBC 2.46 mil/uL (4.20-5.00); RDW 18.4 % (10.5-14.5); WBC 17.7 thou/uL (4.0-11.0)
[2017-03-14 16:12] LABS: MANUAL DIFF YES
[2017-03-14 16:24] LABS: INR 1.1; PROTIME 10.8 Seconds (9.3-11.4)
[2017-03-14 16:28] LABS: ALBUMIN 2.3 g/dL (3.4-5.0); CALCIUM 8.4 mg/dL (8.5-10.1); CREATININE 2.4 mg/dL (0.6-1.0); POTASSIUM 3.6 mmol/L (3.5-5.1); TOTAL BILIRUBIN 0.3 mg/dL (<0.1-1.0); TOTAL PROTEIN 5.4 g/dL (6.4-8.2)
[2017-03-14 16:39] LABS: TOTAL CELL COUNT 100
[2017-03-14 16:40] LABS: ABSOLUTE NEUTROPHILS 16.5 thou/uL (1.4-8.2); METAMYELOCYTES 2 %; MYELOCYTES 1 %
[2017-03-14 16:41] LABS: ANISOCYTOSIS 1+
[2017-03-14 19:49] VITALS: BP 125/62
[2017-03-15 04:17] VITALS: BP 148/68
[2017-03-15 04:49] LABS: HEMATOCRIT 21.9 % (37.0-47.0); HEMOGLOBIN 7.1 gm/dL (12.0-15.0); MCH 28.8 pg (26.0-34.0); MCHC 32.5 g/dL (28.0-37.0); MCV 88.7 fL (80.0-100.0); PLATELET COUNT 139 thou/uL (150-400); RBC 2.47 mil/uL (4.20-5.00); RDW 18.4 % (10.5-14.5); WBC 19.5 thou/uL (4.0-11.0)
[2017-03-15 05:00] LABS: MANUAL DIFF YES
[2017-03-15 05:08] LABS: ALBUMIN 2.4 g/dL (3.4-5.0); CALCIUM 8.3 mg/dL (8.5-10.1); CREATININE 2.3 mg/dL (0.6-1.0); PHOSPHORUS 3.7 mg/dL (2.5-4.9); POTASSIUM 3.5 mmol/L (3.5-5.1)
[2017-03-15 06:25] LABS: ABSOLUTE NEUTROPHILS 18.9 thou/uL (1.4-8.2); ANISOCYTOSIS 2+; TOTAL CELL COUNT 100; TOXIC GRANULATION SLIGHT
[2017-03-15 07:37] VITALS: BP 133/69
[2017-03-15 09:09] LABS: SRA HIGH DOSE HEPARIN 3 % (0-20); SRA LOW DOSE HEPARIN 2 % (0-20)
[2017-03-15 11:55] VITALS: BP 135/62
[2017-03-15 15:28] VITALS: BP 126/51
[2017-03-15 20:03] VITALS: BP 130/64
[2017-03-16 04:43] VITALS: BP 155/92
[2017-03-16 07:27] VITALS: BP 148/83
[2017-03-16 08:52] LABS: HEMATOCRIT 20.8 % (37.0-47.0); HEMOGLOBIN 6.8 gm/dL (12.0-15.0); MCH 28.7 pg (26.0-34.0); MCHC 32.5 g/dL (28.0-37.0); MCV 88.3 fL (80.0-100.0); PLATELET COUNT 122 thou/uL (150-400); RBC 2.35 mil/uL (4.20-5.00); RDW 18.3 % (10.5-14.5); WBC 19.5 thou/uL (4.0-11.0)
[2017-03-16 08:53] LABS: MANUAL DIFF YES
[2017-03-16 09:08] LABS: ALBUMIN 2.3 g/dL (3.4-5.0); CALCIUM 8.4 mg/dL (8.5-10.1); CREATININE 2.4 mg/dL (0.6-1.0); MAGNESIUM 1.9 mg/dL (1.8-2.4); PHOSPHORUS 4.2 mg/dL (2.5-4.9); POTASSIUM 3.3 mmol/L (3.5-5.1); TOTAL BILIRUBIN 0.3 mg/dL (<0.1-1.0); TOTAL PROTEIN 5.1 g/dL (6.4-8.2)
[2017-03-16 09:25] LABS: ABSOLUTE NEUTROPHILS 18.1 thou/uL (1.4-8.2); ANISOCYTOSIS 2+; METAMYELOCYTES 2 %; POLYCHROMASIA OCCASIONAL; TOTAL CELL COUNT 100
[2017-03-16 11:23] VITALS: BP 136/75
[2017-03-16 14:51] VITALS: BP 145/70; BP 146/88
[2017-03-16 16:48] VITALS: BP 139/76
[2017-03-16 18:28] LABS: HEMATOCRIT 21.1 % (37.0-47.0); HEMOGLOBIN 7.2 gm/dL (12.0-15.0); MCH 30.4 pg (26.0-34.0); MCHC 34.1 g/dL (28.0-37.0); MCV 89.1 fL (80.0-100.0); RBC 2.37 mil/uL (4.20-5.00); RDW 17.4 % (10.5-14.5); WBC 15.3 thou/uL (4.0-11.0)
[2017-03-16 18:36] LABS: CALCIUM 8.1 mg/dL (8.5-10.1); CREATININE 2.5 mg/dL (0.6-1.0); POTASSIUM 3.3 mmol/L (3.5-5.1)
[2017-03-16 19:18] VITALS: BP 127/68
[2017-03-17] VITALS (7 sets, daily range): BP systolic 117–161; BP diastolic 60–90
[2017-03-17 04:46] LABS: HEMATOCRIT 24.1 % (37.0-47.0); MCH 29.7 pg (26.0-34.0); MCHC 33.1 g/dL (28.0-37.0); MCV 89.7 fL (80.0-100.0); PLATELET COUNT 115 thou/uL (150-400); RBC 2.68 mil/uL (4.20-5.00); RDW 17.2 % (10.5-14.5)
[2017-03-17 04:47] LABS: MANUAL DIFF YES
[2017-03-17 05:33] LABS: ALBUMIN 2.4 g/dL (3.4-5.0); CALCIUM 8.6 mg/dL (8.5-10.1); CREATININE 2.5 mg/dL (0.6-1.0); POTASSIUM 3.8 mmol/L (3.5-5.1); TOTAL BILIRUBIN 0.3 mg/dL (<0.1-1.0); TOTAL PROTEIN 5.3 g/dL (6.4-8.2)
[2017-03-17 05:47] LABS: PHOSPHORUS 4.6 mg/dL (2.5-4.9)
[2017-03-17 07:15] LABS: ANISOCYTOSIS 1+; METAMYELOCYTES 8 %; TOTAL CELL COUNT 100
[2017-03-17 10:57] LABS: INR 1.1; PROTIME 11.7 Seconds (9.3-11.4)
[2017-03-18 04:11] VITALS: BP 144/85
[2017-03-18 05:26] LABS: HEMATOCRIT 23.9 % (37.0-47.0); HEMOGLOBIN 7.7 gm/dL (12.0-15.0); MCH 29.2 pg (26.0-34.0); MCHC 32.3 g/dL (28.0-37.0); MCV 90.3 fL (80.0-100.0); PLATELET COUNT 101 thou/uL (150-400); RBC 2.64 mil/uL (4.20-5.00); RDW 17.6 % (10.5-14.5); WBC 21.9 thou/uL (4.0-11.0)
[2017-03-18 05:36] LABS: MAGNESIUM 2.1 mg/dL (1.8-2.4); PHOSPHORUS 4.6 mg/dL (2.5-4.9)
[2017-03-18 05:37] LABS: ALBUMIN 2.4 g/dL (3.4-5.0); CALCIUM 8.2 mg/dL (8.5-10.1); CREATININE 2.5 mg/dL (0.6-1.0); PHOSPHORUS 4.6 mg/dL (2.5-4.9)
[2017-03-18 05:38] LABS: MANUAL DIFF YES
[2017-03-18 08:06] LABS: METAMYELOCYTES 1 %; TOTAL CELL COUNT 100
[2017-03-18 08:07] LABS: ANISOCYTOSIS 1+; POLYCHROMASIA OCCASIONAL
[2017-03-18 08:42] VITALS: BP 159/73
[2017-03-18 13:01] VITALS: BP 178/92
[2017-03-18 15:50] VITALS: BP 153/83
[2017-03-18 16:38] LABS: HEMOGLOBIN 6.5 gm/dL (12.0-15.0)
[2017-03-18 16:40] LABS: HEMATOCRIT 19.9 % (37.0-47.0)
[2017-03-18 19:35] VITALS: BP 102/78; BP 130/58; BP 140/81; BP 151/76
[2017-03-18 21:30] VITALS: BP 142/56; BP 145/76; BP 145/80; BP 149/84; BP 160/81
[2017-03-19 01:15] LABS: HEMATOCRIT 25.3 % (37.0-47.0); HEMOGLOBIN 8.4 gm/dL (12.0-15.0)
[2017-03-19 01:25] LABS: INR 1.2; PROTIME 11.7 Seconds (9.3-11.4)
[2017-03-19 03:07] LABS: BETA-2 GLYCOPROTEIN IGG < 9 (0-20); BETA-2 GLYCOPROTEIN IGM < 9 (0-32)
[2017-03-19 05:48] LABS: CREATININE 2.5 mg/dL (0.6-1.0); MAGNESIUM 2.1 mg/dL (1.8-2.4); PHOSPHORUS 4.6 mg/dL (2.5-4.9); POTASSIUM 4.9 mmol/L (3.5-5.1)
[2017-03-19 05:56] LABS: HEMATOCRIT 25.5 % (37.0-47.0); HEMOGLOBIN 8.6 gm/dL (12.0-15.0); MANUAL DIFF YES; MCH 29.7 pg (26.0-34.0); MCHC 33.8 g/dL (28.0-37.0); PLATELET COUNT 76 thou/uL (150-400); RDW 16.5 % (10.5-14.5); WBC 25.3 thou/uL (4.0-11.0)
[2017-03-19 08:06] VITALS: BP 144/83
[2017-03-19 09:11] LABS: ANISOCYTOSIS SLIGHT; METAMYELOCYTES 1 %; PLATELET ESTIMATE DECREASED; POIKILOCYTOSIS SLIGHT
[2017-03-19 10:18] VITALS: BP 138/77
[2017-03-19 14:58] LABS: HEMATOCRIT 23.5 % (37.0-47.0); HEMOGLOBIN 7.8 gm/dL (12.0-15.0)
[2017-03-19 20:29] LABS: HEMATOCRIT 23.6 % (37.0-47.0); HEMOGLOBIN 7.6 gm/dL (12.0-15.0)
[2017-03-20] VITALS (11 sets, daily range): BP systolic 124–166; BP diastolic 69–100
[2017-03-20 01:12] LABS: ANTITHROMBIN III 147 % (75-135); DIL. RUSSELL VIPER VENOM 79.8 sec (0.0-47.0); FACTOR VIII-AHF 190 % (57-163)
[2017-03-20 04:08] LABS: HEMATOCRIT 21.6 % (37.0-47.0); HEMOGLOBIN 7.2 gm/dL (12.0-15.0); MCH 29.7 pg (26.0-34.0); MCHC 33.4 g/dL (28.0-37.0); MCV 88.9 fL (80.0-100.0); RBC 2.43 mil/uL (4.20-5.00); WBC 21.4 thou/uL (4.0-11.0)
[2017-03-20 04:23] LABS: CALCIUM 7.7 mg/dL (8.5-10.1); CREATININE 2.3 mg/dL (0.6-1.0); PHOSPHORUS 5.2 mg/dL (2.5-4.9); POTASSIUM 4.8 mmol/L (3.5-5.1)
[2017-03-20 06:05] LABS: ABG SAMPLE TYPE ARTERIAL; BE(vivo) -13.4 mmol/L (-2 to +3); HCO3 11.8 mmol/L (22.0-26.0); LACTATE 1.41 mmol/L (0.5-2.0); O2(CT) 14.9 mL/dL (15.0-23.0); O2Hb 97.6 % (92.0-98.0); PCO2 25.8 mmHg (35.0-45.0); PO2 131.2 mmHg (80.0-100.0); STICK SITE R.RADIAL; pH 7.278 (7.360-7.450); sO2 98.3 % (92.0-98.0); tCO2 12.6 mmol/L (24.0-30.0)
[2017-03-20 06:06] LABS: TIDAL VOLUME 600 ml
[2017-03-20 13:50] LABS: HEMATOCRIT 24.6 % (37.0-47.0); HEMOGLOBIN 8.2 gm/dL (12.0-15.0); MCH 29.4 pg (26.0-34.0); MCHC 33.4 g/dL (28.0-37.0); RBC 2.79 mil/uL (4.20-5.00); RDW 16.5 % (10.5-14.5); WBC 28.3 thou/uL (4.0-11.0)
[2017-03-20 14:05] LABS: APTT 25.7 Seconds (24.5-32.8); INR 1.1; PROTIME 11.1 Seconds (9.3-11.4)
[2017-03-20 19:20] LABS: HEMATOCRIT 24.1 % (37.0-47.0); HEMOGLOBIN 8.1 gm/dL (12.0-15.0)
[2017-03-21 02:08] LABS: GLYCOHEMOGLOBIN (HGB A1C) 6.2 % (4.8-5.6)
[2017-03-21 05:19] LABS: ABG SAMPLE TYPE ARTERIAL; BE(vivo) -13.7 mmol/L (-2 to +3); HCO3 11.9 mmol/L (22.0-26.0); LACTATE 1.21 mmol/L (0.5-2.0); O2(CT) 11.3 mL/dL (15.0-23.0); O2Hb 89.5 % (92.0-98.0); PCO2 26.4 mmHg (35.0-45.0); PO2 60.7 mmHg (80.0-100.0); sO2 88.6 % (92.0-98.0); tCO2 12.7 mmol/L (24.0-30.0)
[2017-03-21 05:20] LABS: STICK SITE R.RADIAL; TIDAL VOLUME 600 ml
[2017-03-21 06:25] LABS: HEMATOCRIT 24.1 % (37.0-47.0); HEMOGLOBIN 8.1 gm/dL (12.0-15.0); MCH 29.9 pg (26.0-34.0); MCHC 33.8 g/dL (28.0-37.0); MCV 88.7 fL (80.0-100.0); PLATELET COUNT 64 thou/uL (150-400); RBC 2.72 mil/uL (4.20-5.00); RDW 16.7 % (10.5-14.5); WBC 26.2 thou/uL (4.0-11.0)
[2017-03-21 06:34] LABS: CALCIUM 8.2 mg/dL (8.5-10.1); CREATININE 2.5 mg/dL (0.6-1.0); MAGNESIUM 2.2 mg/dL (1.8-2.4); PHOSPHORUS 5.7 mg/dL (2.5-4.9); POTASSIUM 5.7 mmol/L (3.5-5.1)
[2017-03-21 06:38] LABS: MANUAL DIFF YES
[2017-03-21 08:30] LABS: ABSOLUTE NEUTROPHILS 25.4 thou/uL (1.4-8.2); ANISOCYTOSIS 1+; METAMYELOCYTES 1 %; MYELOCYTES 1 %; PLATELET ESTIMATE DECREASED; TOTAL CELL COUNT 100
[2017-03-21 11:02] VITALS: BP 147/89
[2017-03-22 04:58] LABS: MAGNESIUM 2.3 mg/dL (1.8-2.4)
[2017-03-22 05:06] LABS: HEMOGLOBIN 6.6 gm/dL (12.0-15.0); PLATELET COUNT 75 thou/uL (150-400)
[2017-03-22 05:11] LABS: ALBUMIN 1.7 g/dL (3.4-5.0); CALCIUM 7.9 mg/dL (8.5-10.1); CREATININE 2.7 mg/dL (0.6-1.0); PHOSPHORUS 6.5 mg/dL (2.5-4.9)
[2017-03-22 05:12] LABS: POTASSIUM 6.3 mmol/L (3.5-5.1)
[2017-03-22 05:30] LABS: RBC 2.22 mil/uL (4.20-5.00); WBC 22.2 thou/uL (4.0-11.0)
[2017-03-22 05:31] LABS: HEMATOCRIT 20.1 % (37.0-47.0); MCH 29.7 pg (26.0-34.0); MCHC 32.8 g/dL (28.0-37.0); MCV 90.6 fL (80.0-100.0); RDW 16.5 % (10.5-14.5)
[2017-03-22 05:32] LABS: MANUAL DIFF YES
[2017-03-22 10:39] LABS: ABSOLUTE NEUTROPHILS 21.5 thou/uL (1.4-8.2); TOTAL CELL COUNT 100
[2017-03-22 10:40] LABS: POLYCHROMASIA OCCASIONAL
[2017-03-22 10:42] LABS: ANISOCYTOSIS 1+
[2017-03-22 16:43] VITALS: BP 117/54
[2017-03-23 06:15] LABS: HEMATOCRIT 21.9 % (37.0-47.0); HEMOGLOBIN 7.3 gm/dL (12.0-15.0); MCH 28.6 pg (26.0-34.0); MCHC 33.3 g/dL (28.0-37.0); RBC 2.55 mil/uL (4.20-5.00); RDW 16.1 % (10.5-14.5); WBC 24.2 thou/uL (4.0-11.0)
[2017-03-23 06:26] LABS: ALBUMIN 1.7 g/dL (3.4-5.0); CALCIUM 8.1 mg/dL (8.5-10.1); MAGNESIUM 2.2 mg/dL (1.8-2.4); PHOSPHORUS 6.7 mg/dL (2.5-4.9)
[2017-03-23 06:28] LABS: POTASSIUM 6.3 mmol/L (3.5-5.1)
[2017-03-23 08:00] VITALS: BP 136/78
== END 2017-03-23 13:18 | DRG 3 ==
LOC: 4W 11:54 → ICU 11:54 → 4W 03-11 17:52 → ICU 03-18 17:20
PROVIDERS: Family Medicine; Hospitalist; Internal Medicine; Internal Medicine Gastroenterology; Internal Medicine Geriatric Medicine; Internal Medicine Hematology & Oncology; Internal Medicine Nephrology; Internal Medicine Pulmonary Disease; Nurse Practitioner Adult Health; Nurse Practitioner Family; Specialist; Surgery
DX: J96.01 Acute respiratory failure with hypoxia (principal); I26.99 Other pulmonary embolism without acute cor pulmonale; G92 Toxic encephalopathy; K65.9 Peritonitis, unspecified; I48.92 Unspecified atrial flutter; N17.9 Acute kidney failure, unspecified; Z68.42 Body mass index [BMI] 45.0-49.9, adult; I42.9 Cardiomyopathy, unspecified; Z99.11 Dependence on respirator [ventilator] status; I47.1 Supraventricular tachycardia; K56.60 Unspecified intestinal obstruction; N02.8 Recurrent and persistent hematuria with other morphologic changes; K92.2 Gastrointestinal hemorrhage, unspecified; D68.59 Other primary thrombophilia; E46 Unspecified protein-calorie malnutrition; N18.3 Chronic kidney disease, stage 3 (moderate); E66.01 Morbid (severe) obesity due to excess calories; D64.9 Anemia, unspecified; F03.90 Unspecified dementia, unspecified severity, without behavioral disturbance, psychotic disturbance, mood disturbance, and anxiety; I48.91 Unspecified atrial fibrillation; M32.9 Systemic lupus erythematosus, unspecified; B96.20 Unspecified Escherichia coli [E. coli] as the cause of diseases classified elsewhere; E87.6 Hypokalemia; D69.6 Thrombocytopenia, unspecified; K57.90 Diverticulosis of intestine, part unspecified, without perforation or abscess without bleeding; K21.9 Gastro-esophageal reflux disease without esophagitis; Z86.718 Personal history of other venous thrombosis and embolism; Z79.01 Long term (current) use of anticoagulants; Z79.899 Other long term (current) drug therapy; Z51.5 Encounter for palliative care; Z66 Do not resuscitate
CPT/HCPCS: 10047; 10078; 50101; 50382; 50386; 50398; 50403; 50455; 50550; 50953; 51238; 51412; 51708; 51714; 56524; 56525; 56526; 56527; 56639; 62110; 62900; 65002; 65090